=== PATIENT | female | born 2005 | race Caucasian/White ===

== ENCOUNTER 2024-05-06 15:57 | Day surgery (SDC) | payer BC ==
[~2024-05-06] VITALS: Ht 170.2 cm; Wt 52.2 kg
[2024-05-06] VITALS (8 sets, daily range): BP systolic 11–112; BP diastolic 56–71; PULSE 68–95; TEMP 97.9–98.8
[2024-05-06 16:24] LABS: BASO % 0.2 % (0.0-2.0); GRAN # 14.7 K/mm3 (1.4-6.5); GRAN % 82.8 % (42.2-75.2); HEMATOCRIT 40.2 % (35.0-45.0); HEMOGLOBIN 13.4 g/dl (12.0-15.0); LYMPH % 11.5 % (20.0-51.0); MEAN CELL VOLUME 89 fl (80.0-95.0); MEAN CORPUSCULAR HEMOGLOBIN 30 pg (26-32); MEAN CORPUSCULAR HGB CONC 33 g/dl (33.0-37.0); MEAN PLATELET VOLUME 10.4 fl (7.4-10.4); MONO # 0.9 K/mm3 (0.1-0.6); MONO % 5.2 % (1.7-9.3); PLATELET COUNT 216 K/mm3 (130-400)
[2024-05-06] MEDS ORDERED: Ondansetron 4 MG/2 ML VIAL IV ONE (16:30)
[2024-05-06] MEDS ORDERED: LR 1,000 ML IV ONE (16:30)
[2024-05-06] MEDS ORDERED: Morphine 4 MG/ML VIAL IV ONE (16:30)
[2024-05-06 16:34] LABS: COLLECTION METHOD CLEAN CATCH
[2024-05-06 16:42] LABS: ALBUMIN 4.3 g/dL (3.5-5.0); BILIRUBIN,TOTAL 1.9 mg/dL (0.2-1.2); C-REACTIVE PROTEIN 3.37 mg/dL (0.00-0.50); CALCIUM 9.6 mg/dL (8.4-10.2); CREATININE, serum 0.85 mg/dL (0.57-1.11); POTASSIUM 3.7 mEq/L (3.5-4.5); TOTAL PROTEIN 7.7 g/dl (6.2-8.1)
[2024-05-06 16:42] LABS: URINE APPEARANCE CLOUDY (CLEAR/HAZY); URINE BLOOD NEGATIVE (NEGATIVE); URINE COLOR Dark Yellow (YELLOW); URINE GLUCOSE NEGATIVE (NEGATIVE); URINE KETONE TRACE (NEGATIVE); URINE NITRATE NEGATIVE (NEGATIVE); URINE PROTEIN(semi-quant) 2+ (NEGATIVE)
[2024-05-06] MEDS ORDERED: NS 100 ML IV SCH (16:58)
[2024-05-06] MEDS ORDERED: Iohexol 300 - 100 ML VIAL IV ONE (16:58)
[2024-05-06 17:00] LABS: URINE BACTERIA MODERATE /hpf (NONE SEEN)
[2024-05-06] MEDS ORDERED: fentaNYL 50 MCG/ML 2 ML VIAL ONE (18:42)
[2024-05-06] MEDS ORDERED: Lidocaine PF 2% (20 MG/ML) 5 ML VIAL ONE (18:42)
[2024-05-06] MEDS ORDERED: Succinylcholine PF 200 MG/10 ML SYRINGE IV ONE (18:43)
[2024-05-06] MEDS ORDERED: Rocuronium 50 MG/5 ML Multi-Dose VIAL ONE (18:43)
[2024-05-06] MEDS ORDERED: LO-ZUMANDIMINE1 EACH PO (19:23)
[2024-05-06] MEDS ORDERED: Ibuprofen 600 MG TAB PO PRN (19:30)
[2024-05-06] MEDS ORDERED: Acetaminophen 325 MG TAB PO PRN (19:30)
[2024-05-06] MEDS ORDERED: NORCO 325 MG-51 TAB PO (19:30)
[2024-05-06] MEDS ORDERED: Ondansetron 4 MG/2 ML VIAL IV PRN (19:30)
[2024-05-06] MEDS ORDERED: Topical Skin Adhesive 1 EACH (1 ML) TOP ONE (19:38)
--- NOTE | 2024-05-06 20:10 | NUR ---
Patient arrived to room 349 via bed from PACU. Oriented to room and policy. denies nausea/pain/shortness of breath. VS stable. Lap sites x3-surgical glue-edges well approximated-no drainage noted. Provided clear liquids and tolerating. Plan of care discussed for discharge criteria-verbalizes understanding. Call light in reach. Will monitor.
--- NOTE | 2024-05-06 21:24 | NUR ---
Patient has tolerated general diet. Denies pain/nausea/shortness of breath. VS stable. Due to void still. Family is at bedside. Will monitor.
[2024-05-06] MEDS ORDERED: Home HYDROcodone/Acetaminophen 5/325 MG #4 TABS/PACK PO ONE (21:45)
--- NOTE | 2024-05-06 22:00 | NUR ---
Discharge instructions given both verbal and handwritten. Discussed f/u appt, s/s of infection, home medications and when to report adverse reactions. Verbalizes understanding. INT to right AC-20f-DCd cath intact. Motrin/tylenol given prior to DC for travel-rated pain 4/10 on pain scale. Provided with norco home pack per dr order. Escorted off floor by Karine, PCT and family via wheelchair in stable condition.
== END 2024-05-06 22:10 | disposition home or self-care (01) ==
LOC: COL.ER 15:57 → SURG 18:28 → COL.ER 18:28 → SDCO 18:28 → SURG 22:10 → SDCO 22:10
PROVIDERS: Emergency Medicine
DX: K35.80 Unspecified acute appendicitis (principal)
CPT/HCPCS: G0378; J2543; J2704; J3010; J7120; Q9967